=== PATIENT | male | born 1940 | race Hispanic/Latino ===

== ENCOUNTER 2016-07-21 06:09 | Day surgery (SDC) | payer MEDICARE, OTHER ==
[2016-07-21] MEDS ORDERED: ECOTRIN PO ONE (06:29)
[2016-07-21 07:00] LABS: Basophils % (Auto) 0.6 % (0.0-1.8); Eosinophils % (Auto) 3.5 % (0.0-4.3); Hematocrit 41.3 % (35.5-45.6); Hemoglobin 13.7 gm/dl (11.8-15.2); Mean Corpuscular HGB Conc 33 % (32-34); Mean Corpuscular Hemoglobin 29 pg (28-32); Mean Corpuscular Volume 86 fl (84-94); Platelet Count 274 K/mm3 (140-440); Red Blood Count 4.77 M/mm3 (3.65-5.03); Red Cell Distribution Width 15.5 % (13.2-15.2)
[2016-07-21] MEDS ORDERED: NACL 0.9% 500 ML 500 ML IV SCH (07:00)
[2016-07-21 07:14] LABS: Anion Gap 21 mmol/L; BUN/Creatinine Ratio 48.57; Blood Urea Nitrogen 34 mg/dL (9-20); Calcium 10.2 mg/dL (8.4-10.2); Carbon Dioxide 24 mmol/L (22-30); Chloride 98.8 mmol/L (98-107); Glucose 162 mg/dL (75-100); Sodium 140 mmol/L (137-145)
[2016-07-21 07:26] LABS: INR 1.01 (0.87-1.13)
[2016-07-21] MEDS ORDERED: HEPARIN 10,000 UNITS/10 ML ONE (07:58)
[2016-07-21] MEDS: SUBLIMAZE ONE ×2 (08:21→08:40)
[2016-07-21] MEDS: VERSED ONE ×2 (08:21→08:40)
[2016-07-21] MEDS: HEPARIN/NS 5000 UNIT/500ML(CATH LAB) 1,000 ML IR ONE ×2 (08:24→08:45)
[2016-07-21] MEDS: XYLOCAINE 2% INFILTRATI ONE ×2 (08:24→08:49)
--- NOTE | 2016-07-21 09:30 | Short Stay Summary ---
Short Stay Documentation Date of service: 07/21/16 - History H&P: obtained from office - Allergies and Medications Current Medications: Allergies No Known Allergies Allergy (Verified 07/21/16 07:09) Home Medications Medication Instructions Recorded Confirmed Last Taken Type Allopurinol [Allopurinol] 300 mg PO QPM 07/21/16 07/21/16 07/20/16 History Aspirin EC 81 mg PO QDAY 07/21/16 07/21/16 07/20/16 History Ezetimibe [Zetia] 10 mg PO QPM 07/21/16 07/21/16 07/20/16 History Folic Acid 400 mg PO QDAY 07/21/16 07/21/16 07/20/16 History Gemfibrozil [Gemfibrozil] 600 mg PO QPM 07/21/16 07/21/16 07/20/16 History Glucosamine & Chondroitin Cap 1 tab PO QDAY 07/21/16 07/21/16 07/20/16 History HumaLOG VIAL 6 - 8 units SC QPM 07/21/16 07/21/16 07/20/16 History Indomethacin 50 mg PO PRN PRN 07/21/16 07/21/16 1 Week Ago History Insulin Glargine [Lantus VIAL] 38 units SC QAM 07/21/16 07/21/16 07/20/16 History Janumet 50-1,000 mg (Nf) 1 tab PO BID 07/21/16 07/21/16 07/20/16 History Magnesium Oxide 400 mg PO QAM 07/21/16 07/21/16 07/20/16 History NIFEdipine [NIFEdipine ER] 60 mg PO QAM 07/21/16 07/21/16 07/20/16 History Omeprazole (Nf) [PriLOSEC (Nf)] 20 mg PO AC 07/21/16 07/21/16 07/20/16 History Telmisartan/Hydrochlorothiazid 1 tab PO QAM 07/21/16 07/21/16 07/21/16 05:00 History [Micardis Hct 80-25 mg] Vitamin B12 1,000 unit SC QMONTH 07/21/16 07/21/16 06/29/16 History Vitamin D 2,000 unit PO QAM 07/21/16 07/21/16 07/20/16 History glyBURIDE [Glyburide] 5 mg PO QAM 07/21/16 07/21/16 07/20/16 History Active Medications Sodium Chloride (Nacl 0.9% 500 Ml) 500 mls @ 50 mls/hr IV DIRECT TRENA Stop: 07/21/16 16:59 Last Admin: 07/21/16 06:55 Dose: 50 mls/hr - Brief post op/procedure progress note Date of procedure: 07/21/16 Pre-op diagnosis: abnormal stress test Procedure: left heart cath - Hospital course Hospital course: Please see dictated cath report. - Disposition Condition at discharge: Stable Disposition: DISCHARGED TO HOME OR SELFCARE - Discharge Diagnoses (1) Abnormal stress test Status: Acute (2) CAD (coronary artery disease) Status: Chronic Qualifiers: Coronary Disease-Associated Artery/Lesion type: C [place] vs. transplanted heart: N Associated angina: A (3) Hx of CABG Status: Chronic (4) Hypertension Status: Chronic Qualifiers: Hypertension type: H (5) Diabetes Status: Chronic Qualifiers: Diabetes mellitus type: D Diabetes mellitus complication status: D Diabetes mellitus complication detail: D Diabetic retinopathy severity: D Proliferative retinopathy type: P Diabetes mellitus macular edema: D Diabetes mellitus mcfp insulin use: D Laterality: L Chronic kidney disease stage: C Short Stay Discharge Plan Activity: advance as tolerated Weight Bearing Status: Weight Bear as Tolerated Diet: low fat, low cholesterol, low salt Wound: keep clean and dry Follow up with: RICH JONES MD [Primary Care Provider] - 7 Days DURAN BROWN MD [Staff Physician] - 7 Days Forms: CardCath PCI D/C Instructions
[2016-07-21] MEDS ORDERED: ULTRAM PO PRN (10:12)
[2016-07-21] MEDS ORDERED: NORCO 5/325 PO PRN (10:12)
--- NOTE | 2016-07-21 11:28 | Cardiac Catherization Report ---
CARDIAC CATHETERIZATION CLINICAL INFORMATION: The patient is a 75-year-old white gentleman with history of hypertension, diabetes mellitus, was noted to have abnormal stress thallium in 04/2012, at which time, cardiac catheterization showed ostial LAD disease, 70%. Underwent robotic left internal mammary to the LAD on 05/16/[address] Marquez. Presently, being followed in the office on a regular basis by Dr. López and he had a recent stress thallium done, which showed evidence of mild ischemia in the apical and lateral taveras, [address] depressions with downsloping, T-wave inversions were noted. Hence, scheduled for cardiac catheterization for further evaluation. The patient is aware of the procedure, potential complications, and alternatives of therapy available. DESCRIPTION OF PROCEDURE: The patient was brought to the catheterization laboratory in a fasting condition. The right femoral artery area was thoroughly cleansed with Betadine solution and sterile drapes were applied. Local anesthesia was achieved using 2% Xylocaine. Right femoral artery puncture was made using 5-[place]banian micropuncture needle. Subsequently, a 5-[place]banian sheath was introduced. A 5-[place]banian multipurpose catheter was used to obtain the angiograms of the left ventricle done in [place] projection followed by angiograms of the left coronary artery in multiple views. Subsequently, angiograms of the right coronary artery were obtained using mammary catheter. Using 5-[place] JR4 catheter angiograms of the left internal mammary were obtained. Left internal mammary was arising from the subclavian just proximal to the vertebral artery. After obtaining the angiograms of the mammary graft, catheter and sheath were removed and good hemostasis was achieved with pressure bandage. Following findings were noted. HEMODYNAMICS: 1. Opening aortic pressure 138/78. Left ventricular pressure 137/7. No gradient across the aortic valve. Estimated ejection fraction 55%. 2. Left ventriculogram showed normal sized left ventricle with normal contractility, only limited amount of dye was injected. Mitral regurgitation could not be evaluated. CORONARY ANGIOGRAPHY: Fluoroscopy showed heavy calcification in the areas of the left main, proximal LAD, circumflex, and heavy calcification in the proximal and mid RCA areas. Right coronary artery dominant vessel shows as mentioned above calcification. In addition, there are multiple lesions in the mid and distal area, approaching 70-80%, also focal distal lesion prior to the PDA which is 75% lesion. This is large, dominant vessel. Large left ventricular branches without significant disease. Left coronary artery arises normally from left coronary disease, left main without significant disease. As mentioned above, heavy calcification noted in the LAD area. LAD shows 70% ostial lesion and LAD is not visualized distal to the mid part, probably from the competitive flow from the mammary graft. Mammary graft to the LAD is patent without any disease. Distal LAD without significant disease. Circumflex artery and its branches show only mild disease. Collaterals, none. FINAL IMPRESSION: Normal sized left ventricle with patent left internal mammary to the LAD, which was performed for ostial LAD lesion. Circumflex artery without significant disease. Large, dominant RCA is heavily calcified shows multiple lesions in the mid and distal part. Large left ventricular branch is without significant disease. The patient at this time is only minimally symptomatic or asymptomatic. Also, mild ischemia noted in the lateral wall. At this time, consideration will be given for continued medical therapy versus intervention of the RCA. Considering the size of the left ventricular branches, intervention of the RCA may be appropriate. However, heavy calcification and long lesion makes it a complex lesion. We will discuss with the patient, may be angioplasty of the RCA can be arranged at [facility]. The patient tolerated the procedure well. No untoward complications noted. Findings were explained to the patient and family. JOB# [id number] SHANNA/UMESH
[2016-07-21 12:13] VITALS: BP 152/90
== END 2016-07-21 12:30 | disposition home or self-care (01) ==
LOC: OPU 06:09
PROVIDERS: ATTEND Internal Medicine
DX: I25.10 Atherosclerotic heart disease of native coronary artery without angina pectoris (principal); I10 Essential (primary) hypertension; E11.9 Type 2 diabetes mellitus without complications; E78.5 Hyperlipidemia, unspecified; Z95.1 Presence of aortocoronary bypass graft; Z82.49 Family history of ischemic heart disease and other diseases of the circulatory system; Z83.3 Family history of diabetes mellitus; Z79.4 Long term (current) use of insulin; Z79.899 Other long term (current) drug therapy
CPT/HCPCS: 36415; 80048; 85025; 85610; 85730; 93005; 93010; 93459; J1644; J2250; J3010; J7040; Q9967